=== PATIENT | female | born 1950 | race Caucasian/White ===

== ENCOUNTER 2017-06-25 11:40 | Emergency (ER) | payer OTHER, BC ==
[2017-06-25 12:28] LABS: URINE BLOOD (Dip) POC Trace-lysed (NEGATIVE); URINE GLUCOSE (Dip) POC Negative (NEGATIVE); URINE KETONES (Dip) POC Negative (NEGATIVE); URINE LEUKOCYTE EST (Dip) POC Trace (NEGATIVE); URINE NITRITE (Dip) POC Negative (NEGATIVE); URINE TOTAL PROTEIN POC Negative (NEGATIVE)
[2017-06-25 12:28] LABS: URINE PH (Dip) POC 5.5 (5.0-8.5)
[2017-06-25] MEDS: ONDANSETRON 4 MG INJ IV (12:31)
[2017-06-25] MEDS: morphine 4 MG/ML VIAL IV (12:31)
[2017-06-25] MEDS: SOD CHLORIDE 0.9% 1,000 ML IV (12:31)
[2017-06-25 12:34] LABS: ADD MAN DIFF? NO
[2017-06-25 12:35] LABS: BASOPHIL # 0.1 10^3/ul (0.0-0.1); BASOPHILS % 1.2 % (0.0-2.0); EOSINOPHILS # 0.3 10^3/ul (0.0-0.5); EOSINOPHILS % 6.6 % (0.0-7.0); HEMATOCRIT 39.4 % (37.0-47.0); HEMOGLOBIN 13.3 g/dl (12.0-16.0); LYMPHOCYTES # 1.3 10^3/ul (0.8-2.9); LYMPHOCYTES % 25.5 % (15.0-51.0); MEAN CORPUSCULAR HEMOGLOBIN 30.6 pg (29.0-33.0); MEAN CORPUSCULAR HGB CONC 33.8 g/dl (32.0-37.0); MEAN CORPUSCULAR VOLUME 90.6 fl (82.0-101.0); MEAN PLATELET VOLUME 9.9 fl (7.4-10.4); MONOCYTE # 0.4 10^3/ul (0.3-0.9); MONOCYTES % 7.2 % (0.0-11.0); NEUTROPHILS % 59.3 % (39.0-77.0); PLATELET COUNT 223 10^3/UL (140-415); RED BLOOD COUNT 4.35 10^6/ul (4.20-5.40); RED CELL DISTRIBUTION WIDTH 12.9 % (11.5-14.5)
[2017-06-25 13:01] LABS: ALANINE AMINOTRANSFERASE 24 IU/L (13-69); ALBUMIN 3.9 g/dl (3.3-4.9); ALBUMIN/GLOBULIN RATIO 1.08; ALKALINE PHOSPHATASE 75 IU/L (42-121); AMYLASE 118 U/L (11-123); ANION GAP 13 (8-16); ASPARTATE AMINO TRANSFERASE 23 IU/L (15-46); BILIRUBIN,INDIRECT 0.5 mg/dl (0-1.1); BILIRUBIN,TOTAL 0.5 mg/dl (0.2-1.3); BLOOD UREA NITROGEN 16 mg/dl (7-20); CALCIUM 8.7 mg/dl (8.4-10.2); CARBON DIOXIDE 27 mmol/L (21-31); CHLORIDE 108 mmol/L (97-110); CREATININE 0.76 mg/dl (0.44-1.00); GLUCOSE 116 mg/dl (70-220); LIPASE 163 U/L (23-300); POTASSIUM 3.9 mmol/L (3.5-5.1); SODIUM 144 mmol/L (135-144); TOTAL PROTEIN 7.5 g/dl (6.1-8.1)
[2017-06-25 13:08] LABS: INR 0.91; PROTIME 12.3 Sec (11.9-14.9)
[2017-06-25 13:09] LABS: PARTIAL THROMBOPLASTIN TIME 29.3 Sec (25.0-35.0)
[2017-06-25 13:13] LABS: TROPONIN-I < 0.012 ng/ml (0.00-0.12)
[2017-06-25] MEDS: IOHEXOL 300MG/ML 150 ML BTL (13:31)
[2017-06-25] MEDS: SOD CHLORIDE 0.9% 100 ML (13:31)
[2017-06-25] MEDS: MAGNESIUM HYDROXIDE 30ML CUP PO (15:24)
== END 2017-06-25 15:41 | disposition home or self-care (01) ==
LOC: E/R 11:40
DX: K59.00 Constipation, unspecified (principal); R40.2142 Coma scale, eyes open, spontaneous, at arrival to emergency department; R40.2362 Coma scale, best motor response, obeys commands, at arrival to emergency department; R40.2252 Coma scale, best verbal response, oriented, at arrival to emergency department; Z79.82 Long term (current) use of aspirin
CPT/HCPCS: 74177; 80053; 81003; 82150; 83690; 84484; 85025; 85610; 85730; 93005; 96374; 96375; 99285-25

== ENCOUNTER 2017-08-05 06:33 | Emergency (ER) | payer OTHER ==
[2017-08-05] MEDS: DIPHENHYDRAMINE 50 MG INJ IM (07:21)
[2017-08-05 07:31] LABS: ADD UMIC YES; UR ASCORBIC ACID NEGATIVE (NEGATIVE); UR BACTERIA FEW /HPF (NONE SEEN); UR BILIRUBIN (Dip) NEGATIVE (NEGATIVE); UR BLOOD (Dip) 2+ mg/dL (NEGATIVE); UR CLARITY CLEAR (CLEAR); UR COLOR YELLOW (YELLOW); UR GLUCOSE (Dip) NEGATIVE (NEGATIVE); UR KETONES (Dip) NEGATIVE (NEGATIVE); UR LEUKOCYTE ESTERASE (Dip) NEGATIVE Leu/ul (NEGATIVE); UR NITRITE (Dip) NEGATIVE (NEGATIVE); UR RBC 5 /HPF (0-5); UR SPECIFIC GRAVITY (Dip) 1.018 (1.003-1.030); UR TOTAL PROTEIN (Dip) NEGATIVE (NEGATIVE); UR UROBILINOGEN (Dip) NEGATIVE (NEGATIVE); UR WBC 2 /HPF (0-5)
== END 2017-08-05 08:35 | disposition home or self-care (01) ==
LOC: FTE 06:33
DX: B35.6 Tinea cruris (principal); Z79.82 Long term (current) use of aspirin
CPT/HCPCS: 81001; 87086; 96372; 99284-25

== ENCOUNTER 2017-12-01 03:02 | Emergency (ER) | payer OTHER ==
[2017-12-01 03:47] LABS: URINE BLOOD (Dip) POC 3+ (NEGATIVE); URINE GLUCOSE (Dip) POC Negative (NEGATIVE); URINE KETONES (Dip) POC Negative (NEGATIVE); URINE LEUKOCYTE EST (Dip) POC 3+ (NEGATIVE); URINE NITRITE (Dip) POC Negative (NEGATIVE); URINE TOTAL PROTEIN POC 2+ (NEGATIVE)
[2017-12-01 03:47] LABS: URINE PH (Dip) POC 7.5 (5.0-8.5)
== END 2017-12-01 04:42 | disposition home or self-care (01) ==
LOC: FTE 03:02
DX: N30.01 Acute cystitis with hematuria (principal); Z79.82 Long term (current) use of aspirin
CPT/HCPCS: 81003; 99283

== ENCOUNTER 2018-07-27 12:31 | Emergency (ER) | payer OTHER ==
[2018-07-27] MEDS: KETOROLAC 30 MG INJ IM (14:26)
== END 2018-07-27 15:07 | disposition home or self-care (01) ==
LOC: FTE 12:31
DX: M25.462 Effusion, left knee (principal); Z79.82 Long term (current) use of aspirin
CPT/HCPCS: 73562; 76536; 93971; 96372; 99285-25